=== PATIENT | male | born 1975 | race Caucasian/White ===

== ENCOUNTER 2016-03-05 22:53 | Emergency (ER) | payer OTHER ==
[2016-03-05] MEDS ORDERED: OPTIRAY 350 100 ML VIAL HMH IV ONE (22:54)
[2016-03-05] MEDS ORDERED: SODIUM CHLORIDE 0.9% 500 ML IV ONE (23:12)
== END 2016-03-06 04:00 | disposition other institution (70) ==
LOC: EEVIPCON 22:53 → ER 22:53
DX: R41.82 Altered mental status, unspecified (principal); S10.93XA Contusion of unspecified part of neck, initial encounter; F17.200 Nicotine dependence, unspecified, uncomplicated
CPT/HCPCS: 36415; 70450; 70491; 71010; 72125; 80053; 80165; 81003; 82550; 84484; 85025; 93005; 96360; 96361